=== PATIENT | female | born 1975 | race Caucasian/White ===

== ENCOUNTER 2016-09-16 20:04 | Emergency (ER) | payer MEDICAID ==
[~2016-09-16 20:04] MED LIST: IBU-6600 MG PO; NORCO1 TA2 PO
[2016-09-16 20:15] VITALS: BP 147/89
== END 2016-09-16 21:46 | disposition left against medical advice (07) ==
LOC: ED 20:04
DX: Z53.21 Procedure and treatment not carried out due to patient leaving prior to being seen by health care provider (principal)

== ENCOUNTER 2018-10-24 20:59 | Emergency (ER) | payer MEDICAID ==
[~2018-10-24] VITALS: Ht 154.9 cm; Wt 98.4 kg
[2018-10-24 21:16] VITALS: BP 139/68; Ht 154.9 cm; Wt 98.4 kg
== END 2018-10-24 23:07 | disposition home or self-care (01) ==
LOC: ED 20:59
DX: S90.811A Abrasion, right foot, initial encounter (principal); E11.9 Type 2 diabetes mellitus without complications; W54.0XXA Bitten by dog, initial encounter; Y93.01 Activity, walking, marching and hiking; Y92.830 Public park as the place of occurrence of the external cause; Y99.8 Other external cause status
CPT/HCPCS: 90715

== ENCOUNTER 2019-02-08 15:28 | Emergency (ER) | payer SELFPAY ==
[~2019-02-08] VITALS: Ht 152.4 cm; Wt 96.6 kg
[2019-02-08 15:37] VITALS: Ht 152.4 cm; Wt 96.6 kg
[2019-02-08 17:08] LABS: BASOPHIL % 0.5 % (0-2); PLATELET COUNT 293 x10^3mcL (130-400); RED CELL DISTRIBUTION WIDTH 13.8 % (11.5-14.5)
[2019-02-08 21:37] VITALS: BP 122/74
== END 2019-02-08 21:37 | disposition home or self-care (01) ==
LOC: ED 15:28
DX: O02.1 Missed abortion (principal); E11.9 Type 2 diabetes mellitus without complications
CPT/HCPCS: J2270; J2405; J7030

== ENCOUNTER 2019-02-09 14:55 | Inpatient (IN) | payer MEDICAID ==
[~2019-02-09] VITALS: Ht 152.4 cm; Wt 95.7 kg
[2019-02-09 15:00] VITALS: Ht 152.4 cm; Wt 95.7 kg
--- NOTE | 2019-02-09 15:17 | NUR ---
PER PT WAS [place] [facility] [place]. PT STS THAT SHE WAS INSTRUCTED TO COME BACK TO ED IF S/S WORSEN. PT STS THAT SHE IS HAVING SUPRAPUBIC PRESSURE AND SHE CANNOT TAKE THE PAIN ANYMORE. PT STS THAT SHE HAS SOME SPOTTING TODAY WITH NO TISSUE PASSING AT THIS TIME. PT DENIES ANY N/V. PT STS THAT DR. RUIZ SAW HER YESTERDAY AND "VACUUMED" OUT PIECES OF FETUS. PT STS THAT SHE FEELS SHE IS HAVING "CANTRACTIONS". PT STS SHE IS CURRENTLY HAVING A HEADACHE. PT IS ALERT AND ORIENTED, SPEAKING IN CLEAR AND FULL SENTENCES. VSS. RESP E/U. WILL CONTINUE TO MONITOR.
[2019-02-09 16:17] LABS: BASOPHIL % 0.5 % (0-2); PLATELET COUNT 255 x10^3mcL (130-400); RED CELL DISTRIBUTION WIDTH 13.5 % (11.5-14.5)
[2019-02-09 16:20] LABS: CARBON DIOXIDE 25.4 mmol/L (21-32); CHLORIDE SERUM 105 mmol/L (98-107); CREATININE SERUM 0.7 mg/dL (0.6-1.0); GFR1 > 60 mL/min; GLUCOSE SERUM 131 mg/dL (74-106); POTASSIUM SERUM 3.6 mmol/L (3.5-5.1); SODIUM SERUM 141 mmol/L (136-145)
--- NOTE | 2019-02-09 16:20 | NUR ---
LOOM REPAIRER VAGINAL EXAM WITH DR. GAMBINO. PT TOLERATED WELL.
[2019-02-09 16:25] LABS: ALKALINE PHOSPHATASE 54 U/L (46-116); ALT/SGPT 32 U/L (14-59); AST/SGOT 19 U/L (15-37); BILIRUBIN TOTAL 0.54 mg/dL (0.20-1.00); TOTAL PROTEIN, SERUM 6.6 g/dL (6.4-8.2)
[2019-02-09 16:31] LABS: ALBUMIN 2.8 g/dL (3.4-5.0)
[2019-02-09 16:34] LABS: microscopic required? YES; urine erythrocyte 3+ (NEGATIVE)
--- NOTE | 2019-02-09 16:36 | NUR ---
REPORT GIVEN TO ROSALIO TSANG, TO ASSUME CARE OF PT.
--- NOTE | 2019-02-09 16:53 | NUR ---
PT STS THAT SHE IS FEELING A LOT BETTER FROM THE MEDICINE. PT IN POSITION OF COMFORT. RESP E/U. NO DISTRESS NOTED. WILL CONTINUE TO MONITOR.
[2019-02-09 17:22] VITALS: BP 134/79
[2019-02-09 17:28] LABS: IRON 43 ug/dL (50-170); TOTAL IRON BINDING CAPACITY 323 ug/dL (250-450)
--- NOTE | 2019-02-09 17:30 | NUR ---
RECEIVED PT FROM ER, PT ADMIT FOR PASSING FETUS, PT IS A/O X4, VERBAL REPSONSIVE, LUNG SOUND CLEAR BILATERAL, NO COUGH, NO SOB, PT IS ON TELE 9, NSR WITH PAC, DENY ANY CHEST PAIN OR DISCOMFORT, BOWEL SOUND PRESENT ALL 4 QUADRANTS, NO DISTENTION, PT C/O ABD PAIN 10/10 AT LOWER QUADRANTS, PT STATE ITS LIKE CONTRACTION. FEMALE NURSE ACCESS THE VAGINAL AREA, NO FETUS SEEN AT THIS TIME BUT VAGINAL BLEEDING STILL NOTED. PEDAL PULSE PRESENT BOTH FEET, NO EDEMA, IV AT RIGHT AC, NO LEAKING, NO INFITLRATION. ALL ADLS ASSIST, ALL NEED MET, CALL LIGHT IN REACH, WILL CONTINUE TO MONITOR.
--- NOTE | 2019-02-09 18:08 | NUR ---
AT 1710 - RECEIVED PATIENT FROM ER NURSE. SETTLED IN ROOM, ORIENTED TO SURROUNDINGS AND PLACED ON CARDIAC MONITORING TELE # 9. ADMITTED WITH C/O ABDOMINAL PAIN AND VAGINAL BLEEDING, DX OF PASSING FETUS. ADMISSION BEING DONE BY RESOURCE NURSE. NOTED MODERATE AMOUNT OF BLOOD SEROSANGUINOUS DISCHARGE ON PAD. PATIENT C/O CRAMPING LOWER ABDOMINAL PAIN. WAS MEDICATED IN ER. PATIENT IS SCHEDULED FOR D&C AT 1725 - PRE-OP BATH DONE WITH CHLORHEXEDINE WIPES. REPORT GIVEN TO OR NURSE. AT 1745 - PATIENT TAKEN TO SURGERY.
--- NOTE | 2019-02-09 19:25 | NUR ---
PT CAME BACK FROM OR S/P SUCTION D&C, TRANSPORTED BY [facility], ABLE TO TRANSFER TO WALK AND TRANSFER TO BED, AWAKE ALERT VERBAL DENIES PAIN NO DISTRESS, LUNGS CTA, NO SIGNS OF BLEEDING V/S TAKEN AND RECORDED, ASSESSMENT DONE, PT ASKING FOR FOOD, PAGED MD, OFFERED PADS AND UNDERWEAR, PT ABLE TO MAKE NEEDS KNOWN, CALL LIGHT AT REACH, HOOKED BACK TO IVF NS @ 100CC/HR IV ACCESS RAC PATENT NON INFIL, AT BEDSIDE, CONT TO MONITOR.
[2019-02-09 21:02] VITALS: BP 118/71
--- NOTE | 2019-02-09 21:02 | NUR ---
DR STEELE OK'D PT TO EAT FOR TONIGHT.
--- NOTE | 2019-02-10 02:10 | NUR ---
PT AWAKE AMBULATES TO THE BATHROOM, CLAIMED CHANGED HER PADS X1 HAS A MENSTRUAL LIKE BLEEDING, DENIES ABDL PAIN, CONT TO MONITOR.
[2019-02-10 05:31] VITALS: BP 98/59
--- NOTE | 2019-02-10 06:06 | NUR ---
PT SLEPT WELL DURING THE SHIFT, STATED VAGINAL BLEEDING IS FADING RIGHT NOW, PT CHANGE 3 PADS THE ENTIRE SHIFT, DENIES ABDL PAIN, AMBULATING, STATED THAT SHE PROBABLY WILL GO HOME TODAY SINCE SHE FELT BETTER NOW, WILL INFORM MD, ATTENDED NEEDS, IVF INFUSING WELL ORDERED, WILL ENDORSE TO INCOMING SHIFT FPR F/U CARE.
[2019-02-10 06:51] LABS: BASOPHIL % 0.5 % (0-2); PLATELET COUNT 195 x10^3mcL (130-400); RED CELL DISTRIBUTION WIDTH 13.8 % (11.5-14.5)
[2019-02-10 07:17] LABS: CALCIUM 7.4 mg/dL (8.5-10.1); CARBON DIOXIDE 24.8 mmol/L (21-32); CHLORIDE SERUM 108 mmol/L (98-107); CREATININE SERUM 0.5 mg/dL (0.6-1.0); GFR1 > 60 mL/min; GLUCOSE SERUM 130 mg/dL (74-106); MAGNESIUM 1.6 mg/dL (1.8-2.4); PHOSPHOROUS 4.1 mg/dL (2.5-4.9); POTASSIUM SERUM 3.7 mmol/L (3.5-5.1); SODIUM SERUM 142 mmol/L (136-145)
--- NOTE | 2019-02-10 07:26 | NUR ---
RECEIVED PATIENT FROM NIGHT NURSE. SLEEPING. RESPIRATIONS REGULAR. MONITOR SHOWING SINUS RHYTHM; RATE 65. IV INFUSING NS AT 100 ML/HR.
--- NOTE | 2019-02-10 07:38 | NUR ---
PATIENT AWAKE,A LERT, ORIENTED. SITTING UP IN BED EATING BREAKFAST. DENIES ANY PAIN. REPORTS TOTAL OF 3 PADS OVERNIGHT; NOW ONLY MINIMAL VAG BLEEDING. VOIDED X 3. NO NAUSEA, PASSING GAS. ENCOURAGED TO AMBULATE.
[2019-02-10 08:11] VITALS: BP 111/69
[2019-02-10 08:29] VITALS: BP 126/79
[2019-02-10 10:59] LABS: RED BLOOD CELLS 3.38 M/mm3 (4.10-5.10)
[2019-02-10 11:52] VITALS: BP 106/68
--- NOTE | 2019-02-10 12:27 | NUR ---
AT 1000 - GIVEN MG OXIDE 400 MG PO PER EMAR FOR MG LEVEL OF 1.6 AT 1210 - BLOOD GLUCOSE LEVEL 136. AT 1230 - RECEIVED DISCHARGE ORDERS.
[2019-02-10 12:30] VITALS: BP 106/68
--- NOTE | 2019-02-10 13:25 | NUR ---
PATIENT TAKEN OFF CARDIAC MONITORING. IV SALINE LOCKED. PATIENT AMBULATING.
--- NOTE | 2019-02-10 15:38 | NUR ---
PRINTED DISCHARGE INSTRUCTIONS GIVEN AND EXPLAINED TO PATIENT. IV CATHETER REMOVED INTACT. PREPARED FOR DISCHARGE.
--- NOTE | 2019-02-10 15:52 | NUR ---
DISCHARGED HOME WITH FAMILY. TAKEN TO CAR IN WHEELCHAIR BY DIAGNOSTIC TECHNOLOGIST.
== END 2019-02-10 15:45 | disposition home or self-care (01) | DRG 544 ==
LOC: ED 14:55 → DU 16:22
PROVIDERS: Emergency Medicine; Obstetrics & Gynecology; ADMIT Internal Medicine
PROC: 10D17ZZ Extraction of Products of Conception, Retained, Via Natural or Artificial Opening (ICD-10-PCS; principal; 2019-02-09 17:30)
DX: O02.1 Missed abortion (principal); E66.01 Morbid (severe) obesity due to excess calories; E83.42 Hypomagnesemia; O24.919 Unspecified diabetes mellitus in pregnancy, unspecified trimester; O99.210 Obesity complicating pregnancy, unspecified trimester; O16.9 Unspecified maternal hypertension, unspecified trimester; Z3A.00 Weeks of gestation of pregnancy not specified
CPT/HCPCS: 82962; 85378; C1758; G0378; J0690; J1885; J2250; J2704; J3010; J7030; J7120

== ENCOUNTER 2019-11-01 14:35 | Emergency (ER) | payer SELFPAY ==
[~2019-11-01] VITALS: Ht 160 cm; Wt 98.0 kg
[2019-11-01 14:43] VITALS: Ht 160 cm; Wt 98.0 kg
[2019-11-01 15:34] VITALS: BP 149/87
== END 2019-11-01 15:34 | disposition home or self-care (01) ==
LOC: ED 14:35
DX: G51.0 Bell's palsy (principal); M54.2 Cervicalgia; E11.9 Type 2 diabetes mellitus without complications
CPT/HCPCS: J7512